=== PATIENT | female | born 1930 | race Caucasian/White ===

== ENCOUNTER 2016-07-13 16:47 | Emergency (ER) | payer MEDICARE ==
--- NOTE | 2016-07-13 18:31 | RAD ---
EXAMINATION : HIP - LEFT 2 VW + AP PELVIS HISTORY: Left hip pain beginning yesterday. No stated injury. Hip surgery on June 25. COMPARISONS: None currently available. FINDINGS: Patient is status post ORIF of a left femoral fracture. There is an axial compression screw and intramedullary fixation alesha. The distal IM alesha is transfixed by a single transverse locking screw. There is no evidence of hardware failure or breakdown. The pelvic ring is intact. There is bilateral hip joint space narrowing. There are hemostatic clips overlying the right hemipelvis. The sacroiliac joints and anterior sacral neuroforamina are within normal limits. No soft tissue abnormality is seen. IMPRESSION: 1. ORIF left femur. No acute displaced fractures identified. 2. Bilateral hip osteoarthritis.
--- NOTE | 2016-07-13 18:33 | RAD ---
EXAMINATION:KNEE- LEFT 4 OR MORE VIEWS CLINICAL INDICATION: Left knee pain. COMPARISON: None FINDINGS: No fractures identified. There is a femoral intramedullary fixation alesha without evidence of distal loosening or hardware failure. There is mild tricompartment joint space narrowing. Periarticular osteophyte formation is noted. The patellofemoral joint space is narrowed. There is patellar spur formation. No effusion is identified. IMPRESSION: 1. Mild Osteoarthritis of the left knee. 2. Prior ORIF left femur.
== END 2016-07-13 21:11 | disposition home or self-care (01) ==
LOC: ED 16:47
DX: M25.562 Pain in left knee (principal); M25.552 Pain in left hip; I10 Essential (primary) hypertension; Z85.850 Personal history of malignant neoplasm of thyroid; Z85.3 Personal history of malignant neoplasm of breast; Z85.830 Personal history of malignant neoplasm of bone